=== PATIENT | female | born 1995 | race Hispanic/Latino ===

== ENCOUNTER 2022-05-24 12:11 | Outpatient (CLI) | payer OTHER | END 2022-05-24 12:12 | disposition home or self-care (01) | LOC: CSHULT 12:11 | PROVIDERS: ATTEND Family Medicine | DX: O09.92 Supervision of high risk pregnancy, unspecified, second trimester (principal); Z3A.28 28 weeks gestation of pregnancy | CPT/HCPCS: 76805 ==

== ENCOUNTER 2022-06-20 16:24 | Emergency (ER) | payer OTHER ==
[2022-06-20 17:30] LABS: #Eosinphils 0.3 10x3/uL (0.0-0.5); #Neutrophils 5.9 10x3/uL (1.5-8.4); %Basophils 0.2 % (0.0-2.0); %Eosinophils 2.9 % (0.0-6.0); %Lymphocytes 17.8 % (18.0-47.0); %Monocytes 11.1 % (0.0-10.0); %Neutrophils 67.7 % (40.0-75.0); Hemoglobin 12.8 g/dL (12.0-15.5); Mean Corpuscular Hemoglobin 29.2 pg (27.0-33.0); Mean Corpuscular Volume 86.1 fl (81.6-98.3); Mean Platelet Volume 10.2 fl (7.4-10.4); Platelet Count 243 10x3/uL (150-450); Red Blood Cell (RBC) Count 4.38 10x6/uL (3.90-5.03); White Blood Cell (WBC) Count 8.8 10x3/uL (3.5-10.5)
[2022-06-20 17:51] LABS: ALT (SGPT) 20 U/L (8-55); AST (SGOT) 22 U/L (5-34); Albumin 3.7 g/dL (3.5-5.0); Alkaline Phosphatase 123 U/L (40-110); Anion Gap 14 mmol/L (10-20); BUN (Urea Nitrogen) 7 mg/dL (7.0-18.7); Bilirubin, Total 0.3 mg/dL (0.2-1.2); Calc. Creatinine Clearance 0 mL/min (70-130); Calcium 8.8 mg/dL (7.8-10.44); Carbon Dioxide 21 mmol/L (22-29); Chloride 105 mmol/L (98-107); Estimated GFR 125; Globulin 3.5 g/dL (2.4-3.5); Glucose 79 mg/dL (70-105); Potassium 3.4 mmol/L (3.5-5.1); Protein, Total 7.2 g/dL (6.0-8.3); Sodium 137 mmol/L (136-145)
[2022-06-20 18:10] LABS: SARS-CoV-2 NAA Rapid Test Not Detected (NotDetected)
== END 2022-06-20 19:03 | disposition home or self-care (01) ==
LOC: CSHERS 16:24
DX: O99.513 Diseases of the respiratory system complicating pregnancy, third trimester (principal); J06.9 Acute upper respiratory infection, unspecified; Z20.822 Contact with and (suspected) exposure to COVID-19; O99.353 Diseases of the nervous system complicating pregnancy, third trimester; G43.909 Migraine, unspecified, not intractable, without status migrainosus; Z3A.00 Weeks of gestation of pregnancy not specified
CPT/HCPCS: 71045; 80053; 84484; 85025; 93005

== ENCOUNTER 2022-07-25 14:05 | Day surgery (SDC) | payer OTHER ==
[2022-07-25 14:51] VITALS: BMI 35.5
[2022-07-25 16:04] LABS: Fetal Membranes Rupture No Membranes Rupture (No Rupture)
== END 2022-07-25 18:40 | disposition home or self-care (01) ==
LOC: CSHLD/OP 14:05
PROVIDERS: ATTEND Family Medicine
DX: O47.03 False labor before 37 completed weeks of gestation, third trimester (principal); O32.1XX0 Maternal care for breech presentation, not applicable or unspecified; Z3A.36 36 weeks gestation of pregnancy; Z79.899 Other long term (current) drug therapy; Z98.890 Other specified postprocedural states
CPT/HCPCS: 76819; 84112; 99284

== ENCOUNTER 2022-07-26 17:26 | Day surgery (SDC) | payer OTHER | END 2022-07-26 18:20 | disposition home or self-care (01) | LOC: CSHLD/OP 17:26 | PROVIDERS: ATTEND Family Medicine | DX: O47.03 False labor before 37 completed weeks of gestation, third trimester (principal); Z3A.36 36 weeks gestation of pregnancy | CPT/HCPCS: 59025; 76815; 99282 ==

== ENCOUNTER 2022-08-13 09:15 | Inpatient (IN) | payer MEDICAID, OTHER, SELFPAY ==
[2022-08-12 13:49] LABS: #Eosinphils 0.1 10x3/uL (0.0-0.5); #Monocytes 0.7 10x3/uL (0.0-1.1); #Neutrophils 5.9 10x3/uL (1.5-8.4); %Basophils 0.1 % (0.0-2.0); %Eosinophils 0.8 % (0.0-6.0); %Lymphocytes 20.9 % (18.0-47.0); %Monocytes 7.7 % (0.0-10.0); %Neutrophils 70.1 % (40.0-75.0); Hemoglobin 13.3 g/dL (12.0-15.5); Mean Corpuscular HGB CONC 35.1 g/dL (32.0-36.0); Mean Corpuscular Hemoglobin 29.8 pg (27.0-33.0); Mean Corpuscular Volume 84.8 fl (81.6-98.3); Mean Platelet Volume 10.5 fl (7.4-10.4); Platelet Count 273 10x3/uL (150-450); RBC Distribution Width 13.3 % (11.5-14.5); Red Blood Cell (RBC) Count 4.47 10x6/uL (3.90-5.03); White Blood Cell (WBC) Count 8.4 10x3/uL (3.5-10.5)
[2022-08-12 14:19] LABS: SARS-CoV-2 NAA Rapid Test Not Detected (NotDetected)
[2022-08-12 14:21] LABS: Syphilis Antibody Nonreactive (Nonreactive); Syphilis Antibody Index 0.05 S/CO (<1.00 Non-Reactive)
[2022-08-12 14:23] LABS: HBSAg Index 0.22 S/CO (0-0.99); Hep B Surf Ag Non-Reactive S/CO (NonReactive)
[2022-08-13] MEDS ORDERED: Lactated Ringer's 1,000 ML IV SCH (15:14)
[2022-08-13] MEDS ORDERED: CEFAZOLIN 2 GM in Sodium Chloride 0.9% 100 ML IVPB SCH (15:14)
[2022-08-13] MEDS ORDERED: hydrALAZINE 20 MG/ML VIAL SLOW IVP PRN ×2 (15:14→20:54)
[2022-08-13] MEDS ORDERED: Ondansetron PF 4 MG/2 ML Vial IVP PRN ×2 (15:14→20:54)
[2022-08-13] MEDS ORDERED: Promethazine HCl 25 MG/ML VIAL IM PRN ×3 (15:14→20:54)
[2022-08-13] MEDS ORDERED: Famotidine/PF 20 mg/2ml Vial SLOW IVP PRN (15:14)
[2022-08-13] MEDS ORDERED: Bicitra 30 ML UDCUP PO PRN (15:14)
[2022-08-13 15:18] VITALS: BMI 38.6
[2022-08-13] MEDS ORDERED: Ondansetron PF 4 MG/2 ML Vial ONE (16:10)
[2022-08-13] MEDS ORDERED: Oxytocin 10 UNITS/ML VIAL ONE ×2 (16:11→17:04)
[2022-08-13] MEDS ORDERED: CEFAZOLIN 1 GM VIAL ONE (16:11)
[2022-08-13] MEDS ORDERED: Phenylephrine 10 MG/ML VIAL ONE (16:11)
[2022-08-13] MEDS ORDERED: Bupivacaine 0.25% HCL 30 ML VIAL ONE (16:12)
[2022-08-13] MEDS ORDERED: Lidocaine 1% (PF) 30 ML VIAL ONE (16:12)
[2022-08-13] MEDS ORDERED: Atropine Sulfate 0.4 mg/1 ml Vial ONE (16:12)
[2022-08-13] MEDS ORDERED: Lidocaine 2% MPF 10 ML AMP (For Epidural Use) ONE (16:13)
[2022-08-13] MEDS ORDERED: Famotidine/PF 20 mg/2ml Vial ONE (16:13)
[2022-08-13] MEDS ORDERED: Sterile Water 40 ML ONE (16:13)
[2022-08-13] MEDS ORDERED: ePHEDrine Sulfate 50 MG/10 ML VIAL ONE (17:03)
[2022-08-13] MEDS ORDERED: Fentanyl 100 MCG/2 ML VIAL ONE ×2 (17:03→20:16)
[2022-08-13] MEDS ORDERED: Morphine PF 10 MG/10 ML VIAL ONE (17:03)
[2022-08-13] MEDS ORDERED: Naloxone HCl 0.4 mg/ml Vial IVP PRN ×2 (18:21)
[2022-08-13] MEDS ORDERED: Ketorolac Tromethamine 30 MG/ML VIAL IVP PRN (18:21)
[2022-08-13] MEDS ORDERED: Promethazine HCl 25 MG SUPP PR PRN (18:21)
[2022-08-13] MEDS ORDERED: Ondansetron HCl/PF 4 MG/2 ML Vial IVP PRN (18:21)
[2022-08-13] MEDS ORDERED: diphenhydrAMINE 50 MG/ML VIAL IVP PRN (18:21)
[2022-08-13] MEDS ORDERED: Naloxone HCl 0.4 mg/ml Vial IV PRN (18:21)
[2022-08-13] MEDS ORDERED: Fentanyl 100 MCG/2 ML VIAL SLOW IVP PRN (18:21)
[2022-08-13] MEDS ORDERED: Moisturizing Cream (Eucerin) 113 GM JAR TOP PRN (18:21)
[2022-08-13] MEDS ORDERED: Communication Order-Pharmacy FS SCH (18:30)
[2022-08-13] MEDS ORDERED: Ketorolac Tromethamine 30 MG/ML VIAL IVP SCH (18:30)
[2022-08-13] MEDS ORDERED: Bisacodyl 10 MG SUPP PR PRN (20:54)
[2022-08-13] MEDS ORDERED: diphenhydrAMINE 25 MG CAP PO PRN (20:54)
[2022-08-13] MEDS ORDERED: NS w/ Oxytocin 30 units 500 ML IV SCH (20:54)
[2022-08-13] MEDS ORDERED: Boostrix 0.5 ML (Tdap) VIAL (>/=7 yrs of age) IM ONE (20:54)
[2022-08-13] MEDS ORDERED: Lanolin Ointment 7 GM TUBE TOP PRN (20:54)
[2022-08-13] MEDS: Ferrous Sulfate 325 MG TAB PO SCH (21:29)
[2022-08-13] MEDS: Docusate 100 MG CAP PO SCH (21:30)
[2022-08-14] MEDS: Ketorolac Tromethamine 30 MG/ML VIAL IVP SCH ×4 (00:13→18:13)
[2022-08-14 03:56] LABS: Mean Corpuscular HGB CONC 34.2 g/dL (32.0-36.0); Mean Corpuscular Hemoglobin 29.3 pg (27.0-33.0); Mean Corpuscular Volume 85.8 fl (81.6-98.3); Mean Platelet Volume 10.8 fl (7.4-10.4); Platelet Count 243 10x3/uL (150-450); RBC Distribution Width 13.2 % (11.5-14.5); Red Blood Cell (RBC) Count 4.09 10x6/uL (3.90-5.03)
[2022-08-14] MEDS ORDERED: HYDROcodone/Acetaminophen 5/325 mg Tablet PO PRN (06:30)
[2022-08-14] MEDS: Ferrous Sulfate 325 MG TAB PO SCH ×2 (07:41→20:04)
[2022-08-14] MEDS: Docusate 100 MG CAP PO SCH ×2 (08:50→20:09)
[2022-08-14] MEDS: Prenatal Vitamin 1 TAB PO SCH (08:50)
[2022-08-14] MEDS: HYDROcodone/Acetaminophen 5/325 mg Tablet PO PRN ×2 (15:44→20:10)
[2022-08-14] MEDS: Ibuprofen 800 MG TAB PO SCH (20:09)
[2022-08-15] MEDS: Ibuprofen 800 MG TAB PO SCH ×3 (06:02→17:34)
[2022-08-15] MEDS: HYDROcodone/Acetaminophen 5/325 mg Tablet PO PRN ×3 (06:07→20:21)
[2022-08-15] MEDS: Ferrous Sulfate 325 MG TAB PO SCH ×2 (07:19→16:17)
[2022-08-15] MEDS: Docusate 100 MG CAP PO SCH ×2 (08:28→20:21)
[2022-08-15] MEDS: Prenatal Vitamin 1 TAB PO SCH (08:28)
[2022-08-15] MEDS: Simethicone Chewable 80 MG TAB PO PRN ×3 (12:19→22:07)
[2022-08-16] MEDS: Ibuprofen 800 MG TAB PO SCH ×3 (04:52→14:24)
[2022-08-16] MEDS: HYDROcodone/Acetaminophen 5/325 mg Tablet PO PRN ×3 (05:39→14:24)
[2022-08-16 06:35] LABS: Bilirubin Neg (Negative); Blood, Urine 250 (Negative); CAUTI Indications for Culture Fever or rigors; Clarity Slightly Cloudy (Clear); Glucose, Urine (Dipstick) Normal (Negative); Ketone, Urine Negative (Negative); Leukocyte 25 (Negative); Nitrite Negative (Negative); Protein, Urine (Dipstick) 30 mg/dl (Neg-Trace); Specific Gravity, Urine 1.025 (1.005-1.030); Urobilinogen Normal mg/dL (Less than 2)
[2022-08-16 06:38] LABS: Urine Culture Reflex No No
[2022-08-16 06:59] LABS: RBC/HPF 21-50 HPF (0-3)
[2022-08-16 07:00] LABS: Bacteria/HPF 2+ HPF (None Seen); Squamous Epithelial 0-3 HPF (0-3)
[2022-08-16] MEDS: Docusate 100 MG CAP PO SCH (08:54)
[2022-08-16] MEDS: Prenatal Vitamin 1 TAB PO SCH (08:54)
[2022-08-16] MEDS: Ferrous Sulfate 325 MG TAB PO SCH (08:54)
[2022-08-16] MEDS: Simethicone Chewable 80 MG TAB PO PRN (09:52)
[2022-08-16 11:57] VITALS: BP 106/53; TEMP 97.9
== END 2022-08-16 16:20 | disposition home or self-care (01) | DRG 788 ==
LOC: CSHLD 14:53 → CSHPP 20:37
PROVIDERS: ADMIT Family Medicine; ATTEND Family Medicine
PROC: 10D00Z1 Extraction of Products of Conception, Low, Open Approach (ICD-10-PCS; principal; 2022-08-13)
DX: O34.212 Maternal care for vertical scar from previous cesarean delivery (principal); Z20.822 Contact with and (suspected) exposure to COVID-19; Z3A.39 39 weeks gestation of pregnancy; Z37.0 Single live birth; O32.1XX0 Maternal care for breech presentation, not applicable or unspecified; O36.63X0 Maternal care for excessive fetal growth, third trimester, not applicable or unspecified
CPT/HCPCS: 36415; 51702; 81001; 85025; 85027; 86780; 86850; 86900; 86901; 87340; J0461; J0690; J1885; J2001; J2274; J2370; J2405; J2590; J3010; J3490; S0020; S0028; U0002